=== PATIENT | male | born 1955 | race Caucasian/White ===

== ENCOUNTER 2017-04-06 11:15 | Emergency (ER) | payer OTHER ==
[~2017-04-06] VITALS: Ht 182.9 cm; Wt 60.0 kg
[2017-04-06 11:18] VITALS: BP 163/89; PULSE 81; RESP 15; TEMP 98; O2SAT 99
--- NOTE | 2017-04-06 12:52 | PD ---
HPI . right arm bruising that he noticed today Chief Complaint: Skin Problem Time Seen by Provider: 12:49 Travel History International Travel<30 days: No Contact w/Intl Traveler<30days: No Traveled to known affect area: No History of Present Illness HPI 61-year-old male with hypertension here with complaints of right arm bruising. Patient says that he was at work and he thinks he brushed up against some kind of plantar something and noticed that his right inner arm was bruised. He denies any pain, swelling or other issues. 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 PFSH Past Medical History Arthritis: No Asthma: No Autoimmune Disease: No Blood Disorders: No Anxiety: No Depression: Yes (RESOLVED) Heart Rhythm Problems: No Cancer: No Cardiac Catheterization: Yes (2006 NEGATIVE) Cardiovascular Problems: Yes High Cholesterol: No Chemotherapy: No Chest Pain: Yes Congestive Heart Failure: No COPD: No Cerebrovascular Accident: No Diabetes: No Diminished Hearing: No Endocrine: No Gastrointestinal Disorders: Yes GERD: Yes Glaucoma: No Genitourinary: No Headaches: Yes Hepatitis: No Hiatal Hernia: No Hypertension: No Immune Disorder: No Inguinal Hernia: Yes Kidney Stones: No Musculoskeletal: Yes (JAW) Neurologic: Yes Psychiatric: Yes Respiratory: No Immunizations Current: Yes Myocardial Infarction: No Radiation Therapy: No Renal Failure: No Seizures: No Sickle Cell Disease: No Sleep Apnea: No Thyroid Disease: No Ulcer: No Past Surgical History Abdominal Surgery: No AICD: No Cardiac Surgery: No Ear Surgery: No Endocrine Surgery: No Eye Surgery: No Genitourinary Surgery: Yes (INGUINAL HERNIA WITH REPAIR IN 1995) Gynecologic Surgery: No Joint Replacement: No Neurologic Surgery: No Oral Surgery: Yes (JAW BROKEN IN 1981) Pacemaker: No Thoracic Surgery: No Other Surgery: Yes Social History Alcohol Use: Yes Tobacco Use: Yes (2 PKS/WEEK) Substance Use: No Allergies-Medications (Allergen,Severity, Reaction): Coded Allergies: No Known Allergies (Verified , 05/09/16) Reported Meds & Prescriptions Reported Meds & Active Scripts Active No Active Prescriptions or Reported Medications Review of Systems General / Constitutional: No: Fever Eyes: No: Visual changes HENT: No: Headaches Cardiovascular: No: Chest Pain or Discomfort Respiratory: No: Shortness of Breath Gastrointestinal: No: Abdominal Pain Genitourinary: No: Dysuria Musculoskeletal: No: Pain Skin: Positive Other (right arm bruising), No Rash Neurologic: No: Weakness Psychiatric: No: Depression Endocrine: No: Polydipsia Hematologic/Lymphatic: No: Easy Bruising Physical Exam Narrative GENERAL: AAO x 3, no acute distress, Well-nourished, well-developed patient. SKIN: Warm and dry. No visible rashes. Large bruise extending from the medial elbow into the middle of the right upper extremity. There is no swelling or temperature variation. The area is nontender. There appears to be some central clearing. HEAD: Normocephalic and atraumatic. EYES: No scleral icterus. No injection or drainage. EOM intact, PERRLA ENT: No nasal drainage noted. Mucous membranes pink. Airway patent. NECK: Supple, trachea midline. No JVD. CARDIOVASCULAR: Regular rate and rhythm without murmurs, gallops, or rubs. RESPIRATORY: Breath sounds equal bilaterally. No accessory muscle use. No rhonchi or rales. GASTROINTESTINAL: Abdomen soft, non-tender, nondistended. EXTREMITIES: No cyanosis or edema. Full range of motion of bilateral upper extremities BACK: No obvious deformity. NEURO: CN II-12 intact, certified low vision therapist strength normal b/l, UE and LE 5/5, no focal deficits PSYCH: AAO x 3, normal affect. Data Data Last Documented VS Vital Signs Date Time Temp Pulse Resp B/P (MAP) Pulse Ox O2 Delivery O2 Flow Rate FiO2 04/06/17 13:04 04/06/17 11:18 98.0 81 15 99 MDM Medical Decision Making Medical Screen Exam Complete: Yes Emergency Medical Condition: Yes Medical Record Reviewed: Yes Differential Diagnosis superficial bruising, less likely cellulitis, less likely lymphangitis, Narrative Course 61-year-old male here with complaints of right upper extremity bruising. On examination there is a bruise, however it appears to be clearing. I had a discussion asked patient if he possibly has hurt his arm in the past. He denies any prior injury. This bruise appears to be old in nature. It does not appear to be a cellulitis , DVT or other abnormality. There is no evidence of fracture. I recommend observation. I advised him to return to the emergency department for any worsening of his condition. Follow-up with his primary care provider worker's [facility] provider. Patient verbalized understanding of instructions, questions were answered, and thanked me for their care. I advised them if their condition worsens, please return to the nearest emergency room for further care. Diagnosis Primary Impression: Superficial bruising of arm Qualified Codes: S40.021A - Contusion of right upper arm, initial encounter Patient Instructions: General Instructions Additional Instructions: If you develop any swelling or pain, go to the nearest emergency room. Med/Other Pt SpecificInfo: No Change to Meds Scripts No Active Prescriptions or Reported Meds Disposition: 01 DISCHARGE HOME Condition: Stable Maria E Melara Apr 06, 2017 12:52
--- NOTE | 2017-04-06 13:17 | PD ---
Physical Exam Time Seen by Provider: 11:35 Narrative 61yo M c/o feeling something "bite" his R arm and now having redness spreading to the area. Denies fever. Patient seen in triage. VS reviewed. Awaiting bed placement. Data Data Last Documented VS Vital Signs Date Time Temp Pulse Resp B/P (MAP) Pulse Ox O2 Delivery O2 Flow Rate FiO2 04/06/17 13:04 04/06/17 11:18 98.0 81 15 99 MDM Supervised Visit with ESTRELLA: No Diagnosis Primary Impression: Superficial bruising of arm Qualified Codes: S40.021A - Contusion of right upper arm, initial encounter Patient Instructions: General Instructions, Contusion in Adults (ED) Departure Forms: Tests/Procedures Additional Instruction: If you develop any swelling or pain, go to the nearest emergency room. Scripts No Active Prescriptions or Reported Meds Disposition: 01 DISCHARGE HOME Condition: Stable Luisa Rebolledo Apr 06, 2017 13:17
== END 2017-04-06 13:05 | disposition home or self-care (01) ==
LOC: NEPK 11:15
DX: S40.021A Contusion of right upper arm, initial encounter (principal); I10 Essential (primary) hypertension; K21.9 Gastro-esophageal reflux disease without esophagitis; F17.200 Nicotine dependence, unspecified, uncomplicated; X58.XXXA Exposure to other specified factors, initial encounter
CPT/HCPCS: 99282